=== PATIENT | male | born 1960 | race Caucasian/White ===

== ENCOUNTER 2016-07-14 19:04 | Emergency (ER) | payer OTHER ==
[~2016-07-14] VITALS: Ht 157.5 cm; Wt 55.3 kg
--- NOTE | 2016-07-14 19:28 | ED GI/GU/ABDOMINAL COMPLAINT ---
History of Present Illness General Chief Complaint: Male Genitourinary Problems Stated Complaint: PT IS HAVING VERY BAD PAIN IN THE GRION AREA Source: patient Exam Limitations: no limitations Vital Signs & Intake/Output Vital Signs & Intake/Output SEE NOTES Allergies Coded Allergies: No Known Allergies (07/14/16) Triage Note: TRIAGE: PT WITH 10/10 R GROIN PAIN. WRITHING IN WHEELCHAIR. STATES PAIN STARTED X1.5 HOURS AGO. SIGNIFICANT LUMP NOTED TO RIGHT GROIN AREA. DENIES TRAUMA, INJURY OR STRAIN PRIOR TO PAIN OCCURING. 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 yes Onset: Abrupt Duration: hour(s): (1) Timing: single episode today Quality/Severity: moderate, sharpness Severity Numbers: 10 Location: right lower quadrant Radiation: no radiation Activities at Onset: shovelling dirt Prior Abdominal Problems: none No Modifying Factors: none Associated Symptoms: abdominal pain HPI: 55 year old male with sudden onset of rlq pain after sohvelling dirt this afternoon. When he came back into the house he had to urinate but could not empy out his blader. He states that he felt a lump in his rlq. No pain in the back. History of inguinal hernia repair many years ago. Last BM today. No vomiting but mild nausea. Deneis any fever, chills or urinary symptoms. Past History Travel History Traveled to [place] past 21 day No Medical History Any Pertinent Medical History? see below for history Neurological: NONE EENT: NONE Cardiovascular: NONE Respiratory: NONE Gastrointestinal: NONE Hepatic: NONE Renal: NONE Musculoskeletal: NONE Psychiatric: NONE Endocrine: NONE Blood Disorders: NONE Cancer(s): NONE Surgical History Surgical History: LEFT WRIST SURGERY Psychosocial History What is your primary language Turkmen Tobacco Use: Current Daily Use Daily Tobacco Use Amount/Type: =< 4 Cigarettes daily ETOH Use: denies use Family History Hx Contributory? No Review of Systems Review of Systems Constitutional: Denies: chills, fever. EENTM: Reports: no symptoms. Respiratory: Denies: short of breath. Cardiovascular: Denies: chest pain. GI: Reports: see HPI (bulge), abdominal pain, nausea. Denies: constipation, diarrhea, vomiting. Genitourinary: Denies: discharge, dysuria. Musculoskeletal: Denies: back pain. Skin: Reports: no symptoms. Neurological/Psychological: Reports: no symptoms. Hematologic/Endocrine: Denies: bruising, bleeding, polyuria, polydipsia. Immunologic/Allergic: Denies: splenectomy. All Other Systems: Reviewed and Negative Physical Exam Physical Exam General Appearance: alert, awake, anxious, moderate distress, severe distress, thin Head: atraumatic, normal appearance Eyes: Bilateral: normal appearance. Ears, Nose, Throat, Mouth: hearing grossly normal, moist mucous membrane Neck: normal inspection, supple, full range of motion Respiratory: normal breath sounds, chest non-tender, no respiratory distress Cardiovascular: regular rate/rhythm Peripheral Pulses: 2+ radial (R), 2+ radial (L) Gastrointestinal: soft, tenderness (RIGHT INGUINAL REGION), NO PALPABLE HERNIA Male Genitals: normal genitalia Back: normal inspection, normal range of motion Extremities: normal range of motion Neurologic/Psych: no motor/sensory deficits, awake, alert, oriented x 3 Skin: intact, normal color, warm/dry Core Measures ACS in differential dx? No Severe Sepsis Present: No Septic Shock Present: No Progress Differential Diagnosis: bowel obstruction, hernia, perforated viscous, SBO, testicular torsion, ureterolithiasis, UTI/pyelo Plan of Care: Orders Procedure Date/time Status LACTIC ACID 07/15 2247 Active EKG 07/15 2051 Active TYPE & SCREEN (NOT X-MATCH) 07/15 2051 Active LACTIC ACID 07/15 1947 Complete COMPREHENSIVE METABOLIC PANEL 07/15 1947 Complete CBC WITHOUT DIFFERENTIAL 07/15 1947 Complete URINALYSIS 07/15 1927 Complete Laboratory Tests 07/14/162105: Urine Color YEL, Urine Clarity CLEAR, Urine pH 7.5, Ur Specific [place] 1.020, Urine Protein NEG, Urine Ketones TRACE H, Urine Nitrite NEG, Urine Bilirubin NEG, Urine Urobilinogen 0.2, Ur Leukocyte Esterase NEG, Ur Microscopic EXAM NOT REQUIRED, Urine Hemoglobin NEG, Urine Glucose NEG 07/14/162014: Anion Gap 14, Estimated GFR > 60, BUN/Creatinine Ratio 17.3, Glucose 99, Lactic Acid 1.5, Calcium 9.7, Total Bilirubin 0.2, AST 30, ALT 24, Alkaline Phosphatase 67, Total Protein 7.7, Albumin 4.4, Globulin 3.3, Albumin/Globulin Ratio 1.3, CBC w Diff MAN DIFF ORDERED, RBC 3.81 L, MCV 85.4, MCH 28.6, RDW 16.0 H, MPV 10.7 H, Gran % 52.0, Lymphocytes % 39.4, Monocytes % 6.1, Eosinophils % 2.1, Basophils % 0.4, Absolute Granulocytes 5.4, Segmented Neutrophils 49, Band Neutrophils 1, Absolute Lymphocytes 4.1 H, Lymphocytes 37, Monocytes 10 H, Absolute Monocytes 0.6, Eosinophils 2, Absolute Eosinophils 0.2, Basophils 1, Absolute Basophils 0, Platelet Estimate ADEQUATE, Polychromasia 1+, Hypochromic- Microcytic 2+, Basophilic Stippling 1+, Anisocytosis 1+, PUBS MCHC 33.5 labs, saline, zofran, morphine ordered. ct ordered. 9:[address] MARIYA CATALAN. Patient's pain much improved after morphine. Patient evaluated by surgical IZA Franco in the ED and he discussed the patient with Dr. Nino. It appears the patient is currently reduced, no signs of obstruction. Will follow up with Dr. Nino in the office for elective repair of his inguinal hernia. (YUKO WHIPPLE,KAILEY) Diagnostic Imaging: Viewed by Me: CT Scan. Discussed w/RAD: CT Scan. Radiology Impression: PATIENT: JENNIFER MCGOWAN PRESENT AGE: 55 PATIENT ACCOUNT NO: [id number] : 56 LOCATION: [facility] ORDERING PHYSICIAN: KAILEY HUNTLEY MD SERVICE DATE: 07/14/16 EXAM TYPE: CAT - CT ABD & PELVIS W/O IV CONTRAS EXAMINATION: CT ABDOMEN AND PELVIS WITHOUT CONTRAST CLINICAL INFORMATION: Right lower quadrant pain. Nausea. Urinary frequency. Swollen lymph node COMPARISON: None TECHNIQUE: Multidetector volumetric imaging was performed from the superior aspect of the liver through the pubic symphysis. Sagittal and coronal reformatted images were obtained on the technologist's workstation. DLP: 217.99 mGy-cm FINDINGS: The exam is limited by patient's limited fat planes and no oral or intravenous contrast used. LUNG BASES: The visualized lung bases are unremarkable. LIVER, GALLBLADDER, AND BILIARY TREE: The liver is normal in size, shape, and attenuation. No focal hepatic lesion or biliary ductal dilatation is present. The gallbladder is unremarkable with no evidence of radiopaque gallstones, gallbladder wall thickening, or obvious pericholecystic inflammatory changes. PANCREAS: Unremarkable. SPLEEN: Unremarkable. ADRENAL GLANDS: Unremarkable. KIDNEYS AND URETERS: The kidneys are normal in size, shape, and attenuation. No hydronephrosis, hydroureter, or calculi seen. No perinephric stranding. BLADDER: Unremarkable. GASTROINTESTINAL TRACT: There is a right inguinal hernia. There is a small bowel loop entrapped in the hernia with edema in the adjacent fat. This is causing obstruction of small bowel. There is dilated small bowel loops in midabdomen. Moderate to large-volume of stool in colon. MESENTERY: No free air or free fluid. ABDOMINAL WALL: No significant hernia is appreciated. LYMPH NODES : No bulky lymphadenopathy VASCULAR: Scattered vascular calcification of the abdominal wall and iliac arteries. PELVIC VISCERA: Unremarkable. OSSEOUS STRUCTURES: Multilevel degenerative spondylosis with disc height narrowing and endplate spurs vertebrae. Degenerative facet joint disease of mid lower lumbar spine. IMPRESSION: Right inguinal hernia with incarcerated small bowel loop causing small bowel obstruction. 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 < Electronically signed in Other Vendor System> SIGNED BY: FLO CACERES MD 2037 Initial ED EKG: NSR Departure Departure Time of Disposition: 2215 Disposition: HOME OR SELF CARE Condition: Stable Clinical Impression Primary Impression: Inguinal hernia Referrals: MARIYA WHIPPLE,DEBRA N. Additional Instructions: No heavy lifting or exercises. Please follow-up with Dr. Nino in the office. Return to the ER for any changing or worsening symptoms. Departure Forms: Customer Survey General Discharge Information
[2016-07-14 20:33] LABS: ABSOLUTE BASOPHIL COUNT 0 /CUMM (0.0-0.2); ABSOLUTE EOSINOPHIL COUNT 0.2 /CUMM (0.0-0.7); ABSOLUTE GRANULOCYTE CT 5.4 /CUMM (1.4-6.5); ABSOLUTE LYMPH COUNT 4.1 /CUMM (1.2-3.4); ABSOLUTE MONOCYTE COUNT 0.6 /CUMM (0.10-0.60); BASOPHIL % 0.4 % (0.0-2.0); EOSINOPHIL % 2.1 % (0-5); HEMATOCRIT 32.6 % (42-52); MEAN CORPUSCULAR HGB 28.6 PG (27.0-31.0); MEAN CORPUSCULAR HGB CONC 33.5 G/DL (33.0-37.0); MEAN CORPUSCULAR VOLUME 85.4 FL (80.0-94.0); MEAN PLATELET VOLUME 10.7 FL (7.4-10.4); PLATELET COUNT 171 /CUMM (130-400); RED BLOOD CELL CT 3.81 /CUMM (4.70-6.10); WHITE BLOOD CELL COUNT 10.3 /CUMM (4.8-10.8)
--- NOTE | 2016-07-14 20:38 | CT SCAN REPORT ---
EXAMINATION: CT ABDOMEN AND PELVIS WITHOUT CONTRAST CLINICAL INFORMATION: Right lower quadrant pain. Nausea. Urinary frequency. Swollen lymph node COMPARISON: None TECHNIQUE: Multidetector volumetric imaging was performed from the superior aspect of the liver through the pubic symphysis. Sagittal and coronal reformatted images were obtained on the technologist's workstation. DLP: 217.99 mGy-cm FINDINGS: The exam is limited by patient's limited fat planes and no oral or intravenous contrast used. LUNG BASES: The visualized lung bases are unremarkable. LIVER, GALLBLADDER, AND BILIARY TREE: The liver is normal in size, shape, and attenuation. No focal hepatic lesion or biliary ductal dilatation is present. The gallbladder is unremarkable with no evidence of radiopaque gallstones, gallbladder wall thickening, or obvious pericholecystic inflammatory changes. PANCREAS: Unremarkable. SPLEEN: Unremarkable. ADRENAL GLANDS: Unremarkable. KIDNEYS AND URETERS: The kidneys are normal in size, shape, and attenuation. No hydronephrosis, hydroureter, or calculi seen. No perinephric stranding. BLADDER: Unremarkable. GASTROINTESTINAL TRACT: There is a right inguinal hernia. There is a small bowel loop entrapped in the hernia with edema in the adjacent fat. This is causing obstruction of small bowel. There is dilated small bowel loops in midabdomen. Moderate to large-volume of stool in colon. MESENTERY: No free air or free fluid. ABDOMINAL WALL: No significant hernia is appreciated. LYMPH NODES: No bulky lymphadenopathy VASCULAR: Scattered vascular calcification of the abdominal wall and iliac arteries. PELVIC VISCERA: Unremarkable. OSSEOUS STRUCTURES: Multilevel degenerative spondylosis with disc height narrowing and endplate spurs vertebrae. Degenerative facet joint disease of mid lower lumbar spine. IMPRESSION: Right inguinal hernia with incarcerated small bowel loop causing small bowel obstruction.
[2016-07-14 23:02] VITALS: BP 146/80
== END 2016-07-14 23:03 ==
LOC: ERH 19:04
PROVIDERS: Emergency Medicine
DX: K40.90 Unilateral inguinal hernia, without obstruction or gangrene, not specified as recurrent (principal)
CPT/HCPCS: 74176; 81003; 93005; 93010; 96374; 96375; J2405

== ENCOUNTER 2016-07-27 20:00 | Emergency (ER) | payer OTHER ==
[~2016-07-27] VITALS: Ht 157.5 cm; Wt 52.2 kg
[2016-07-27 20:06] VITALS: BP 122/71
[2016-07-27 20:41] LABS: ABSOLUTE BASOPHIL COUNT 0 /CUMM (0.0-0.2); ABSOLUTE EOSINOPHIL COUNT 0.1 /CUMM (0.0-0.7); ABSOLUTE GRANULOCYTE CT 7.3 /CUMM (1.4-6.5); ABSOLUTE LYMPH COUNT 1.9 /CUMM (1.2-3.4); ABSOLUTE MONOCYTE COUNT 0.6 /CUMM (0.10-0.60); BASOPHIL % 0.1 % (0.0-2.0); GRANULOCYTE % 73.8 % (42.2-75.2); HEMATOCRIT 31.5 % (42-52); MEAN CORPUSCULAR HGB 28.2 PG (27.0-31.0); MEAN CORPUSCULAR HGB CONC 33.9 G/DL (33.0-37.0); MEAN CORPUSCULAR VOLUME 83.2 FL (80.0-94.0); MEAN PLATELET VOLUME 9.6 FL (7.4-10.4); PLATELET COUNT 218 /CUMM (130-400); RBC DISTRIBUTION WIDTH 16.3 % (11.5-14.5); RED BLOOD CELL CT 3.79 /CUMM (4.70-6.10); WHITE BLOOD CELL COUNT 9.9 /CUMM (4.8-10.8)
[2016-07-27 20:43] LABS: PT 13.8 SEC (9.4-12.5)
--- NOTE | 2016-07-27 20:57 | ED GI/GU/ABDOMINAL COMPLAINT ---
History of Present Illness General Chief Complaint: General Adult Stated Complaint: BIBA FOR HERNIA Source: patient, family, old records Exam Limitations: no limitations Vital Signs & Intake/Output Vital Signs & Intake/Output Vital Signs Date Time Temp Pulse Resp B/P B/P Pulse O2 O2 Flow FiO2 Mean Ox Delivery Rate 07/277 Room Air 07/27 2005 98.3 82 20 122/71 97 Room Air Allergies Coded Allergies: No Known Allergies (07/14/16) Triage Note: PRESENTS TO ED COMPLAINING OF 10/10 LOWER PELVIC PAIN. REPORTS HX OF HERNIA. HE WAS DOING YARD WORK WHEN HE FELT A "POP" AND THE PAIN BEGAN IMMEDIATELY Triage Nurses Notes Reviewed? yes Onset: Just prior to arrival Duration: minute(s):, constant, continues in ED Timing: recent history Quality/Severity: sharpness, severe Location: right lower quadrant Radiation: no radiation Activities at Onset: physical activity Prior Abdominal Problems: similar symptoms Past Sexual History: Unobtainable at this time Modifying Factors: Worsens With: palpation. Associated Symptoms: abdominal pain, mass HPI: [place] while working in the yard the patient felt a sharp severe pop in his right groin similar to previous hernia 2 weeks ago that resolved after analgesia. He denies fever chills nausea vomiting diarrhea chest pain cough shortness of breath headache dysuria rash bleeding. Past History Travel History Traveled to [place] past 21 day No Medical History Any Pertinent Medical History? none Neurological: NONE EENT: NONE Cardiovascular: NONE Respiratory: NONE Gastrointestinal: NONE Hepatic: NONE Renal: NONE Musculoskeletal: NONE Psychiatric: NONE Endocrine: NONE Blood Disorders: NONE Cancer(s): NONE Surgical History Surgical History: LEFT WRIST SURGERY Psychosocial History What is your primary language Togolese Tobacco Use: Refused to answer Family History Hx Contributory? No Review of Systems Review of Systems Constitutional: Reports: no symptoms. EENTM: Reports: no symptoms. Respiratory: Reports: no symptoms. Cardiovascular: Reports: no symptoms. GI: Reports: see HPI, abdominal pain. Genitourinary: Reports: no symptoms. Musculoskeletal: Reports: no symptoms. Skin: Reports: no symptoms. Neurological/Psychological: Reports: no symptoms. Hematologic/Endocrine: Reports: no symptoms. Immunologic/Allergic: Reports: no symptoms. All Other Systems: Reviewed and Negative Physical Exam Physical Exam General Appearance: well developed/nourished, alert, awake, anxious, severe distress, thin Head: atraumatic, normal appearance Eyes: Bilateral: normal appearance, PERRL, EOMI, normal inspection. Ears, Nose, Throat, Mouth: hearing grossly normal, moist mucous membrane Neck: normal inspection, supple, full range of motion, normal alignment Respiratory: normal breath sounds, chest non-tender, no respiratory distress, quiet respiration, lungs clear Cardiovascular: regular rate/rhythm, normal peripheral pulses, norml femoral pulses equa Peripheral Pulses: 4+ carotid (R), 4+ carotid (L) Gastrointestinal: normal bowel sounds, soft, no organomegaly, hernia (right inguinal incarcerated) Male Genitals: normal genitalia Back: normal inspection, normal range of motion Extremities: normal range of motion, no ligament instability Neurologic/Psych: no motor/sensory deficits, awake, alert, oriented x 3, normal gait, normal mood/affect, 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 No Severe Sepsis Present: No Septic Shock Present: No Progress Differential Diagnosis: hernia Plan of Care: Orders Procedure Date/time Status PROTHROMBIN TIME 07/27 2018 Complete LIPASE 07/27 2018 Complete COMPREHENSIVE METABOLIC PANEL 07/27 2018 Complete CBC WITHOUT DIFFERENTIAL 07/27 2018 Complete Laboratory Tests 07/27/16 2030: Anion Gap 14, Estimated GFR > 60, BUN/Creatinine Ratio 27.5 H, Glucose 82, Calcium 10.3 H, Total Bilirubin 0.3, AST 28, ALT 22, Alkaline Phosphatase 48, Total Protein 7.5, Albumin 4.6, Globulin 2.9, Albumin/Globulin Ratio 1.6, Lipase 66, PT 13.8 H, INR 1.32 H, CBC w Diff NO MAN DIFF REQ, RBC 3.79 L, MCV 83.2, MCH 28.2, RDW 16.3 H, MPV 9.6, Gran % 73.8, Lymphocytes % 19.4 L, Monocytes % 5.7, Eosinophils % 1.0, Basophils % 0.1, Absolute Granulocytes 7.3 H, Absolute Lymphocytes 1.9, Absolute Monocytes 0.6, Absolute Eosinophils 0.1, Absolute Basophils 0, PUBS MCHC 33.9 Initial ED EKG: none Comments: Hernia reduced with analgesia trendelenberg ice and frog leg position. Ambulates without hernia recurrence. Departure Departure Time of Disposition: 2155 Disposition: HOME OR SELF CARE Condition: Stable Clinical Impression Primary Impression: Reducible right inguinal hernia Referrals: MARIYA WHIPPLE,DEBRA Weems UNKNOWN (PCP/Family) Departure Forms: Customer Survey General Discharge Information Prescriptions: Current Visit Scripts Ibuprofen 1 TAB PO Q6PRN PRN pain #50 TAB with food Oxycodone HCl/Acetaminophen (Percocet 5-325 MG Tablet) 1 TAB PO Q6P PRN severe pain #15 TAB Critical Care Note Critical Care Note Critical Care Time: 30-74 min (30)
[2016-07-27] MEDS ORDERED: IBUPROFEN600 M1 PO (21:57)
[2016-07-27] MEDS ORDERED: PERCOCET 5-3251 EACH PO (21:57)
== END 2016-07-27 22:10 ==
LOC: ERH 20:00
PROVIDERS: Emergency Medicine
DX: K40.90 Unilateral inguinal hernia, without obstruction or gangrene, not specified as recurrent (principal)
CPT/HCPCS: 96361; 96374; 96375; J2405

== ENCOUNTER → 2016-08-20 | Day surgery (SDC) | payer OTHER ==
[~2016-08-20] VITALS: Ht 157.5 cm; Wt 56.7 kg
[~2016-08-20] MED LIST: IBUPROFEN600 M1 PO; PERCOCET 5-3251 EACH PO
--- NOTE | 2016-08-20 15:53 | Operative Report ---
Operative/Inv Procedure Report Surgery Date: 08/20/16 Name of Procedure: Preperitoneal laparoscopic recurrent right inguinal hernia repair with mesh Pre-Operative Diagnosis: Recurrent right inguinal hernia Post-Operative Diagnosis: Same, direct Estimated Blood Loss: scant Surgeon/Intelligence Support Officer: MARIYA WHIPPLE,DEBRA Weems Anesthesia: general endotracheal tube Operative/Procedure Note Note: Patient was positioned supine on the table. After successful induction of general anesthesia the inguinal and surrounding areas were clipped prepped and draped in the usual sterile fashion. After injection of local anesthetic at the bottom of the umbilicus off the midline to the right, a 1 1/2 cm curved incision was made with a 15 blade, then deepened through Erin's fascia, sweeping off the rectus sheath. A horizontal 1-1/2 cm incision was made between the fibers, elevating these edges with 0 Vicryl stay sutures. Then retracting the muscle laterally, clearing off the posterior rectus sheath, this space is developed down the midline to the pubis sequentially, with an S retractor, a peanut dissector, then the balloon-camera device, inflating it 30-40 pumps while watching how it opens up the space, keeping the epigastrics up. The balloon is then replaced with a 10 mm Lopez trocar, inserted, shortened, and secured with the stay sutures, gas turned on to 12 not 15 mm. Then two 5 mm trochars are inserted in the midline just below the camera, spaced by approximately 3 cm. Using mostly blunt dissection with peanuts to define the anatomy, first William's ligament is swept off medially, checking the medial spaces, direct and femoral. This was a direct recurrence. Then briefly skipping over the area of the iliac fat pad, we developed the iliopubic tract out laterally to the iliac crest. Then we returned to the area medial to the fat pad where the hernia sac was adherent, coursing up just medial to the vein. The lip of peritoneum was swept down and proximally to the level of the bladder and off the vas a little laterally. The cord structures form a triangle with the vas approaching medially and the main vessels approaching laterally, with the apex at the deep ring, then from the underlying iliac fat. A Parietex sided mesh with the suture, is marked and stuffed down the camera trocar, then unfurled in a systematic fashion, first with the smaller leaflet passing behind the cord structures, until the flap covers the epigastrics, covering the deep ring, then the larger leaflet is released from the suture, double-covering the smaller one, but also extends laterally out to the iliac crest, medially over William's ligament, and superiorly towards the camera. There is a third part of the mesh, that covers the iliac fat pad like a skirt. The mesh was adjusted back and forth so that the keyhole is centered around the cord, lays flat and the edges are not curling. A trial run of letting the gas escape a little bit to see how the mesh would lay as the peritoneum comes back down is done, then when we're satisfied, we let rest of the gas escape, pulling out the instruments and trochars. The fascia is closed with a [id number] 0 Vicryl suture, tying the stay sutures on top. Then we closed the 3 skin incisions with interrupted 4-0 Monocryl, 3 for the umbilical, one each for the smaller ones, followed by Mastisol, Steri-Strips and Band-Aids. Overall estimated blood loss was minimal, lap and sponge counts were correct, wound expectancy was clean, IV fluids crystalloid, complications none, patient tolerated the procedure well, did not significantly viramontes during extubation and was returned to the recovery room in satisfactory condition.
== END ==
LOC: STS 07:00
DX: K40.91 Unilateral inguinal hernia, without obstruction or gangrene, recurrent (principal); K90.0 Celiac disease; K21.9 Gastro-esophageal reflux disease without esophagitis; F17.200 Nicotine dependence, unspecified, uncomplicated
CPT/HCPCS: C1781; J0131; J0690; J2250